=== PATIENT | male | born 1955 ===

== ENCOUNTER 2021-06-26 00:42 | Emergency (ER) | payer MEDICARE ==
[2021-06-26] MEDS ORDERED: Acetaminophen/HYDROcodone 325-10 MG Tab PO ONE (00:43)
[2021-06-26] MEDS ORDERED: Sodium Chloride 0.9% 1,000 ML IV ONE (01:07)
[2021-06-26] MEDS ORDERED: HYDROmorphone 1 MG/ML Syringe IVPUSH ONE (01:07)
[2021-06-26] MEDS ORDERED: Ondansetron 4 MG/2 ML SDV IVPUSH ONE (01:07)
[2021-06-26 01:29] LABS: ANION GAP 15.3 mEq/L (7-13)
[2021-06-26] MEDS ORDERED: Tamsulosin 0.4 MG Cap.ER PO ONE (02:45)
[2021-06-26] MEDS ORDERED: Ciprofloxacin 500 MG Tab PO ONE (04:07)
[2021-06-26] MEDS ORDERED: Acetaminophen/HYDROcodone 325-10 MG Tab ONE (04:18)
== END 2021-06-26 04:35 | disposition home or self-care (01) ==
LOC: DL.ED 00:42
DX: N13.2 Hydronephrosis with renal and ureteral calculous obstruction (principal); N39.0 Urinary tract infection, site not specified
CPT/HCPCS: 36415; 74176; 80053; 81001; 85025; 96374; 96375; 99284; A9270; J1170; J2405; J7030